=== PATIENT | male | born 1955 | race Two or more races ===

== ENCOUNTER 2016-08-27 10:45 | Emergency (ER) | payer OTHER ==
[~2016-08-27] VITALS: Ht 172.7 cm; Wt 102.5 kg
[~2016-08-27 10:45] MED LIST: AMLODIPINE BESYL5 MG PO; ASPIR 8181 M1 PO; ATORVASTATIN CA40 MG PO; CARVEDILOL12.5 MG PO; CLOPIDOGREL75 MG PO; ISOSORBIDE MONO30 MG PO; LOPRESSOR25 MG PO; LOSARTAN POTAS100 MG PO; PREDNISONE10 MG PO; RAMIPRIL10 MG PO; ULTRAM50 MG PO
[2016-08-27] MEDS ORDERED: ULTRAM50 MG PO (11:49)
[2016-08-27 13:43] VITALS: BP 166/104
== END 2016-08-27 15:15 | disposition home or self-care (01) ==
LOC: EME 10:45
DX: M25.561 Pain in right knee (principal); M25.562 Pain in left knee; M17.0 Bilateral primary osteoarthritis of knee; G89.29 Other chronic pain; Z79.82 Long term (current) use of aspirin
CPT/HCPCS: 99281; 99283